=== PATIENT | male | born 1955 | race Caucasian/White ===

== ENCOUNTER 2017-12-27 09:08 | Emergency (ER) | payer BC ==
--- NOTE | 2017-12-27 10:06 | UC ---
Ear Complaint HPI - HPI Summary HPI Summary: 62-year-old male onset of right ear pain, tinnitus, and constant feeling of disequilibrium for past 2-3 days. Associated with some nausea. Notes that the vertigo improves when he lies down. He states this started around the same time of some left upper dental pain which he was evaluated for yesterday and had an abscess drained from the left upper first molar. He is presently on amoxicillin 500 mg 4 times a day for the infection. He denies fever, chills, headache, visual disturbances, confusion, slurred speech, extremity weakness, numbness, or tingling, chest pain, palpitations, shortness of breath, abdominal pain, or vomiting. - History of Current Complaint Chief Complaint: UCEar Stated Complaint: EAR PAIN Time Seen by Provider: 12/27/17 09:41 Hx Obtained From: Patient Onset/Duration: Gradual Onset, Lasting Days Severity Currently: Mild Pain Intensity: 3 Aggravating Factors: Nothing Alleviating Factors: Nothing Associated Signs/Symptoms: Positive: Hearing Loss. Negative: Discharge, URI Symptoms - Allergies/Home Medications Allergies/Adverse Reactions: Allergies Allergy/AdvReac Type Severity Reaction Status Date / Time rosuvastatin [From Crestor] Allergy See Comment Verified 12/27/17 09:44 Home Medications: Home Medications Amoxicillin 500 mg PO QID 12/27/17 [History Confirmed 12/27/17] Aspirin 325 mg PO 12/27/17 [History] Ibuprofen TAB* [Motrin TAB* 800 MG] 800 mg PO Q6H 12/27/17 [History Confirmed ] Lisinopril TAB* [Prinivil TAB 5 MG*] 5 mg PO DAILY 12/27/17 [History Confirmed 12/27/17] Pravastatin Sodium 20 mg PO 12/27/17 [History] Verapamil TAB* [Calan TAB*] 240 mg PO DAILY 12/27/17 [History Confirmed 12/27/17 ] PMH/Surg Hx/FS Hx/Imm Hx Endocrine History: Dyslipidemia Cardiovascular History: Hypertension - Surgical History Surgical History: None - Family History Known Family History: Positive: Hypertension - Social History Occupation: Employed Full-time Lives: With Family Alcohol Use: Daily Substance Use Type: None Smoking Status (MU): Never Smoked Tobacco Review of Systems Constitutional: Negative Skin: Negative Eyes: Negative ENT: Dental Pain, Ear Ache Cardiovascular: Negative Gastrointestinal: Nausea Motor: Negative Neurovascular: Negative Musculoskeletal: Negative Is Patient Immunocompromised?: No All Other Systems Reviewed And Are Negative: Yes Physical Exam Triage Information Reviewed: Yes Appearance: Well-Appearing, No Pain Distress, Well-Nourished Vital Signs: Initial Vital Signs Temp 97.8 F 12/27/17 09:38 Pulse 82 12/27/17 09:38 Resp 18 12/27/17 09:38 BP 150/97 12/27/17 09:38 Pulse Ox 98 12/27/17 09:38 Vital Signs Reviewed: Yes Eyes: Positive: Conjunctiva Clear. Negative: Discharge ENT: Positive: Pharynx normal, TM red - Mild erythema upper, anterior right TM, Uvula midline. Negative: Nasal congestion, Nasal drainage, Tonsillar swelling, Tonsillar exudate Dental: Positive: Other: - Mild gingival erythema and surgical incision at left upper 1st molar with suture intact Neck: Positive: Supple, Nontender, No Lymphadenopathy Respiratory: Positive: Lungs clear, Normal breath sounds, No respiratory distress Cardiovascular: Positive: RRR, No Murmur Abdomen Description: Positive: Nontender, No Organomegaly, Soft. Negative: Distended, Guarding Bowel Sounds: Positive: Present Musculoskeletal: Positive: Strength Intact Neurological: Positive: Alert, Muscle Tone Normal, Other: - Right side facial palsy without forehead involvement otherwise cranial nerves II-XI grossly intact. PERRLA. Speech clear and appropriate. BHANDARI equal and strong. Sensation intact. Rhomberg negative. Skin Exam: Normal Ear Complaint Course/Dx - Course Course Of Treatment: 62 year old male with 2-3 day history of right ear pain, tinnitus, and constant vertigo with nausea. He was noted to have some right- sided facial palsy on exam but otherwise normal neuro exam. There was some erythema noted to the right TM. He is already on amoxicillin for a dental infection on the opposite side of symptoms. Suspect that his neuro symptoms are peripheral as opposed to a central however cannot fully exclude and do not have CT available. Recommend evaluation in the ED. Patient verbalizes understanding and elects to transport via private vehicle with spouse driving. - Differential Dx/Diagnosis Differential Diagnosis/HQI/PQRI: Otitis Media, Trigeminal Nueralgia, Other - vestibular neuritis, acuna's palsy, CVA Provider Diagnoses: facial palsy, vertigo Discharge - Sign-Out/Discharge Documenting (check all that apply): Patient Departure All imaging exams completed and their final reports reviewed: No Studies - Discharge Plan Condition: Stable Disposition: HOME-RECOMMEND TO ED Patient Education Materials: Dizziness (ED) Referrals: Jos Aguilar MD [Primary Care Provider] - Additional Instructions: I am concerned with the facial drooping, ringing in your ear, and constant dizziness you are experiencing. This could be from a condition that affects the peripheral nerves of the face but I cannot rule out the possibility of something more severe such as a stroke. I recommend that you go to the emergency room for evaluation. Go directly to the emergency room from here. - Billing Disposition and Condition Condition: STABLE Disposition: Home-Recommend to ED
[2017-12-27 10:45] VITALS: BP 142/99
== END 2017-12-27 10:50 | disposition home health service (06) ==
LOC: UCEAST 09:08
DX: G51.0 Bell's palsy (principal); R42 Dizziness and giddiness; R11.0 Nausea; K04.7 Periapical abscess without sinus; Z88.8 Allergy status to other drugs, medicaments and biological substances; E78.5 Hyperlipidemia, unspecified; I10 Essential (primary) hypertension
CPT/HCPCS: 99203; G0463

== ENCOUNTER → 2017-12-27 11:14 | Emergency (ER) | payer BC ==
--- NOTE | 2017-12-27 11:47 | ED ---
Dizziness - HPI Summary HPI Summary: Pt is a 62 y/o M who presents to ED c/o constant dizziness for 5 days. He describes the dizziness as spinning. Notes excessive cerumen, headache, erythematous area around right ear drum, and nausea. Denies numbness on face, legs, or arms. Has been taking amoxicillin from dental procedure this week. - History Of Current Complaint Chief Complaint: EDDizziness Stated Complaint: DIZZY COMING FROM CC Time Seen by Provider: 12/27/17 11:41 Hx Obtained From: Patient Onset/Duration: Still Present Timing: Constant Severity Currently: Mild - 210 Character: Head Spinning Associated Signs And Symptoms: Positive: Nausea, Other: - headache - Allergies/Home Medications Allergies/Adverse Reactions: Allergies Allergy/AdvReac Type Severity Reaction Status Date / Time rosuvastatin [From Crestor] Allergy See Comment Verified 12/27/17 09:44 PMH/Surg Hx/FS Hx/Imm Hx Cardiovascular History: Reports: Hx Hypercholesterolemia, Hx Hypertension Neurological History: Denies: Hx CVA Infectious Disease History: No Infectious Disease History: Denies: Traveled Outside the [place] in Last 30 Days - Family History Known Family History: Positive: Hypertension - Social History Alcohol Use: Daily Substance Use Type: Reports: None Smoking Status (MU): Former Smoker Review of Systems Positive: Other - excessive cerumen, redness around right ear drum Negative: Nausea Neurological: Other - Dizziness Positive: Headache. Negative: Paresthesia, Numbness All Other Systems Reviewed And Are Negative: Yes Physical Exam - Summary Physical Exam Summary: Appearance: Well appearing, no pain distress Skin: warm, dry, reflects adequate perfusion Head/face: normal Eyes: EOMI, KERRI ENT: Erythema mostly on superior portion of TM no effusion, no mastoid tenderness or redness, single exudate on the right tonsillar area, mucous membranes moist, no tonsillar enlargement Neck: supple, non-tender Respiratory: CTA, breath sounds present Cardiovascular: RRR, pulses symmetrical Abdomen: non-tender, soft Bowel Sounds: present Musculoskeletal: normal, strength/ROM intact Neuro: sensory motor intact, A&Ox3, slight facial asymmetry on the right side but no drooping, bilateral horizontal nystagmus in both eyes, negative Hallpike test, minor ptosis of right eye, minor forehead involvement, normal finger to nose and Romberg NIH of 1 for facial asymmetry Triage Information Reviewed: Yes Vital Signs On Initial Exam: Initial Vitals Temp Pulse Resp BP Pulse Ox 97.6 F 73 16 156/97 98 12/27/17 11:17 12/27/17 11:17 12/27/17 11:17 12/27/17 11:17 12/27/17 11:17 Vital Signs Reviewed: Yes Diagnostics - Vital Signs Vital Signs Temp Pulse Resp BP Pulse Ox 12/27/17 11:32 65 17 152/102 95 12/27/17 11:17 97.6 F 73 16 156/97 98 - Laboratory Lab Statement: Any lab studies that have been ordered have been reviewed, and results considered in the medical decision making process. Dizzy Course/Dx - Course Course Of Treatment: Patient presents with mild intermittent rotational dizziness, right ear pain including redness and tenderness of the pinna and slight right-sided facial asymmetry. The TM is erythematous as well. He is already on antibiotics for dental issue on the opposite side. Facial nerve is affected, likely peripheral palsy given involvement of the forehead, mild ptosis. CT scan of the head negative for any mastoiditis or sinusitis air- fluid levels. Discussed the case with neurology who suggests follow-up with primary care physician and treatment with oral steroids, antiviral etc. - Diagnoses Differential Diagnosis/HQI/PQRI: Benign Paroxysmal Positional Vertigo, CVA, Hypovolemia, Labyrinthitis, Transient Ischemic Attack Provider Diagnoses: [place]'s palsy, Vestibular neuronitis Discharge - Sign-Out/Discharge Documenting (check all that apply): Patient Departure - Discharge - Discharge Plan Condition: Stable Disposition: HOME Prescriptions: Artificial Tear OPHTH.OINT* [Lacrilube OINT*] 1 applic RIGHT EYE BEDTIME #1 ophth.oint Meclizine HCl [Dramamine Less Drowsy] 25 mg PO TID PRN #20 tablet PRN Reason: Dizziness predniSONE TAB* [Deltasone TAB*] 50 mg PO DAILY #7 tab ValACYclovir (*) [Valtrex 1 GM(*)] 1 gm PO TID #21 tab Patient Education Materials: [place] Palsy (ED), Vertigo (DC) Referrals: Jos Aguilar MD [Primary Care Provider] - Levar Bales MD [Medical Doctor] - Additional Instructions: Drink plenty of fluids. Call first thing Friday morning for an appointment with your doctor. If your eye is tearing use lubricant eyedrops every hour. Return if worse, new symptoms, numbness/weakness, difficulty with speech, or other concerns as discussed. - Billing Disposition and Condition Condition: STABLE Disposition: Home - Attestation Statements Document Initiated by Denis: Yes Documenting Scribe: Michael Sla Provider For Whom Sheriee is Documenting (Include Credential): Dr. Erik Monzon MD Scribe Attestation: IMichael, scribed for Dr. Erik Monzon MD on 12/27/17 at 1730. Scribe Documentation Reviewed: Yes Provider Attestation: The documentation as recorded by the fredyibhanna, Michael Sal accurately reflects the service I personally performed and the decisions made by me, Dr. Erik Monzon MD
--- NOTE | 2017-12-27 12:33 | RAD ---
HISTORY: dizzy, R facial nerve palsy, R ear pain COMPARISONS: None TECHNIQUE: Multiple contiguous axial CT scans were obtained of the head without intravenous contrast. FINDINGS: HEMORRHAGE/INFARCT: There is no hemorrhage or acute infarct. MASSES/SHIFT: There is no mass or shift. EXTRA-AXIAL SPACES: There are no extra-axial fluid collections. SULCI AND VENTRICLES: The sulci and ventricles are normal in size and position for the patient's stated age. CEREBRUM: There are no focal parenchymal abnormalities. BRAINSTEM: There are no focal parenchymal abnormalities. CEREBELLUM: There are no focal parenchymal abnormalities. VESSELS: The vessels are grossly normal. PARANASAL SINUSES: There is a mucous cyst versus polypoid mucosal thickening of the right maxillary sinus. ORBITS: The orbits are unremarkable. BONES AND SOFT TISSUE: No bone or soft tissue abnormalities are noted. OTHER: None IMPRESSION: NO ACUTE INTRACRANIAL PATHOLOGY.
[2017-12-27 13:51] VITALS: BP 154/99
[2017-12-29 13:45] LABS: Herpes Simplex Virus II IgG AB Negative (Negative)
== END | disposition home or self-care (01) ==
LOC: ED 11:14
DX: G51.0 Bell's palsy (principal); H81.20 Vestibular neuronitis, unspecified ear; Z87.891 Personal history of nicotine dependence; E78.00 Pure hypercholesterolemia, unspecified; I10 Essential (primary) hypertension; Z98.890 Other specified postprocedural states
CPT/HCPCS: 70450; 86694; 86695; 86696; 99283